=== PATIENT | female | born 1980 | race Caucasian/White ===

== ENCOUNTER 2019-09-29 19:14 | Emergency (ER) | payer OTHER, SELFPAY ==
[2019-09-29 20:20] VITALS: BP 151/101; PULSE 111; RESP 18; TEMP 37.6; O2SAT 99
--- NOTE | 2019-09-29 21:18 | ED.SKABFB ---
HPI - Skin/Abscess/Foreign Bdy General Chief complaint: Skin/Abscess/Foreign Body Stated complaint: RASH Time Seen by Provider: 09/29/19 21:18 Source: patient and RN notes reviewed Mode of arrival: other Limitations: no limitations History of Present Illness HPI narrative: Pt is a 39 y/o female who presents to the ED with c/o a pruritic rash with an unknown onset. Pt states that she has the rash for awhile. Pt notes that she recently came back from [place]. Pt states that she has been fighting a cold for the past two weeks with cough and rhinorrhea sx. Pt states the rash is on her extremities, abdomen, back, and buttocks. She denies her family having any rashes. Pt denies a fever. MD complaint: rash Onset (ago): unknown Location: generalized Quality: pruritic Relieving factors: none Associated symptoms: cough and other (rhinorrhea) Related Data Allergies Allergy/AdvReac Type Severity Reaction Status Date / Time No Known Allergies Allergy Verified 09/29/19 20:25 Review of Systems Review of Systems: All systems reviewed & are unremarkable except as noted in HPI and below Constitutional: Constitutional: Denies fever(s) ENT: Reports other (rhinorrhea) Respiratory: Respiratory: Reports cough Integumentary/Breasts: Skin/Breast: Reports pruritus and Reports rash (on her extremities, abdomen, back, and buttocks) PMFSH Past Medical History Medical History (Updated 09/30/19 @ 00:00 by Kip Morocho) HTN (hypertension) Migraines Surgical History Surgical History (Updated 09/29/19 @ 21:29 by Fauzia Najera) No history of previous surgery Social History Social History (Updated 09/29/19 @ 21:29 by Fauzia Najera) Smoking status: Former smoker Tobacco type: cigarettes Gender identity (if verbalized by the patient): Female Exam Const: General: cooperative, no acute distress and alert Nutritional Appearance: well nourished Orientation/consciousness: patient oriented x3 Limitations: no limitations HENMT: Head: other (wearing a mask) Resp: Effort & Inspection: normal respiratory effort GI: GI Palp: Yes Soft to palpation and No Tenderness to palpation present (GI) Skin: General skin exam: normal color Rashes: rashes noted diffuse other (small palpable rash scattered on extremities with excoriation, but with no obvious burrows) Neuro: General: patient oriented x3 Cognition (Neuro): normal cognition Speech: normal speech Extrem: General: normal to inspection, full ROM and no clubbing, cyanosis or edema Psych: Mental Status: mental status grossly normal Affect: normal affect Attitude: cooperative Course Course Emergency Course: Patient presents with approximately 1 to 1-1/2-month history of diffuse intensely pruritic rash. Patient with scattered papular rash without obvious burrows noted. Patient with significant excoriations. Suspect potential for scabies. Will treat. Advised importance of primary care follow-up for further evaluation if not improving. Vital Signs Vital signs: Vital Signs Temperature 99.6 F 09/29/19 20:20 Pulse Rate 111 H 09/29/19 20:20 Respiratory Rate 18 09/29/19 20:20 Blood Pressure 151/101 H 09/29/19 20:20 Pulse Oximetry 99 09/29/19 20:20 Temperature 99.6 F 09/29/19 20:20 Pulse Rate 111 H 09/29/19 20:20 Respiratory Rate 18 09/29/19 20:20 Blood Pressure 151/101 H 09/29/19 20:20 Pulse Oximetry 99 09/29/19 20:20 Critical Care Time Critical Care Time Critical Care Time: No Discharge Plan Discharge Clinical Impression: Rash and nonspecific skin eruption, Scabies Patient Disposition: Home, Self-Care Condition: Stable Instructions: Scabies (ED), Acute Rash (ED) Additional Instructions: Use treatment for possible scabies as prescribed. If this does not help your symptoms, follow-up with primary care provider for further evaluation. If things are not improving, you may need to see a property claim rep for further evalu
== END 2019-09-29 21:45 | disposition home or self-care (01) ==
PROVIDERS: Emergency Provider Emergency Medicine; PCP Family Medicine
DX: B86 Scabies (principal); I10 Essential (primary) hypertension; Z87.891 Personal history of nicotine dependence
CPT/HCPCS: 99283

== ENCOUNTER 2019-10-01 21:59 | Emergency (ER) | payer OTHER, SELFPAY ==
--- NOTE | ~2019-10-01 | XR_ITS ---
EXAMINATION: XR chest 2V DATE: 10/01/2019 22:48 INDICATION: Cough and congestion and fever. TECHNIQUE: Frontal and lateral views of the chest were obtained. COMPARISON: Chest 2 views 11/17/2018 FINDINGS: There is mild scarring at the lung apices. No pleural effusion or pneumothorax. The heart s ize is normal. Surgical clips in the right upper quadrant are likely from cholecystectomy. IMPRESSION: 1. Mild scarring at the lung apices. Reviewed, dictated and finalized at location A. R GLUING OPERATOR
[2019-10-01 22:02] VITALS: BP 146/89; PULSE 114; RESP 20; TEMP 39.1; O2SAT 100
[2019-10-01 22:27] VITALS: RESP 20
--- NOTE | 2019-10-01 22:52 | ED.URI ---
HPI - URI/Sore Throat General Chief Complaint: Fever Stated Complaint: vomiting, cough, cold Time Seen by Provider: 10/01/19 22:38 Source: patient and RN notes reviewed Mode of arrival: ambulatory Limitations: no limitations History of Present Illness HPI Narrative: Pt is a 39 y/o female who presents to the ED with c/o flu-like symptoms starting roughly 2 weeks ago. She notes that she has felt sick for the past 2 weeks. Pt reports a cough as well as a fever starting earlier today. She states that she took Tylenol for her symptoms around 14:00 this afternoon. Pt notes that she recently returned home from [place] where she was visiting her boyfriend. MD elicited complaint: fever and cough Pertinent past history: asthma Onset (ago): week(s) (2) Context: recent travel Associated symptoms: denies other symptoms Treatments prior to arrival: acetaminophen Related Data Allergies Allergy/AdvReac Type Severity Reaction Status Date / Time No Known Allergies Allergy Verified 09/29/19 20:25 Review of Systems Review of Systems: All systems reviewed & are unremarkable except as noted in HPI and below Constitutional: Constitutional: Reports fever(s) Respiratory: Respiratory: Reports cough PMFSH Past Medical History Medical History Asthma Gallstones HTN (hypertension) Kidney stones Migraines Toe fracture, right Surgical History Surgical History History of ureter stent Hx of cholecystectomy Social History Social History Smoking status: Former smoker Tobacco type: cigarettes Gender identity (if verbalized by the patient): Female Exam Narrative: Exam Narrative: APPEARANCE: No acute distress, nontoxic, resting in bed EYES: EOMI HEENT: Normocephalic, atraumatic, TMs clear bilaterally, bilateral turbinates boggy with clear rhinorrhea, erythema the posterior pharynx and tonsils with no exudate, uvula midline RESPIRATORY: No respiratory distress Clear to auscultation bilaterally with no rhonchi wheezing or rales. CARDIOVASCULAR: Regular rate and rhythm without murmurs rubs or gallops. ABDOMINAL: Soft, nontender, nondistended, no rebound or guarding MUSCULOSKELETAl: Moves all extremities. No clubbing, cyanosis or edema. NEURO: Awake and alert. Following commands, speech normal, no focal deficits SKIN:: Warm, dry. No rashes lesions or abrasions PSYCHIATRIC: Normal affect/mood, Course Course Emergency Course: Discussed with patient results of workup and diagnosis. Discussed need for follow-up with primary care, proper use of medication, and reasons to return to the emergency department. Patient understands and agrees to current treatment plan Vital Signs Vital signs: Vital Signs Temperature 102.4 F H 10/01/19 22:02 Pulse Rate 114 H 10/01/19 22:02 Respiratory Rate 10/01/19 22:02 Blood Pressure 146/89 H 10/01/19 22:02 Pulse Oximetry 100 10/01/19 22:02 Temperature 102.4 F H 10/01/19 22:02 Pulse Rate 114 H 10/01/19 22:02 Respiratory Rate 10/01/19 22:27 Blood Pressure 146/89 H 10/01/19 22:02 Pulse Oximetry 100 10/01/19 22:02 MDM - URI/Sore Throat Lab Data Labs: Influenza A Screen Positive Reference Range: Negative Influenza B Screen Negative Reference Range: Negative Imaging Data Attestation: I personally reviewed and interpreted this imaging study as follows: My impression: Chest X-Ray IMPRESSION: No acute cardiopulmonary process. Discharge Plan Discharge Clinical Impression: Influenza A Patient Disposition: Home, Self-Care Condition: Stable Instructions: Antibiotic Form, Influenza (ED) Additional Instructions: Return for increasing shortness of breath vomiting or any other symptoms of concern Prescriptions: New benzonatate [Tessalon Perles] 100 mg capsule 100 mg PO
[2019-10-01] MEDS: ACETAMINOPHEN 500 MG TABLET 1000 MG PO (23:23)
[2019-10-01 23:53] VITALS: TEMP 37.8
[2019-10-02 00:20] VITALS: BP 141/91; PULSE 116; RESP 14; TEMP 37.8; O2SAT 96
== END 2019-10-02 00:20 | disposition home or self-care (01) ==
PROVIDERS: Emergency Provider Emergency Medicine; PCP Family Medicine
DX: J10.1 Influenza due to other identified influenza virus with other respiratory manifestations (principal); J45.909 Unspecified asthma, uncomplicated; I10 Essential (primary) hypertension; Z87.442 Personal history of urinary calculi; Z87.891 Personal history of nicotine dependence
CPT/HCPCS: 71046; 87804; 99283; A9270

== ENCOUNTER 2020-06-24 18:20 | Emergency (ER) | payer OTHER, SELFPAY ==
[2020-06-24] VITALS (18 sets, daily range): BP systolic 124–140; BP diastolic 80–107; PULSE 93–116; RESP 14–23; TEMP 36.3; O2SAT 99–100
--- NOTE | ~2020-06-24 | CT_ITS ---
EXAMINATION: CTA chest PE protocol DATE: 06/24/2020 20:33 INDICATION: Shortness of breath TECHNIQUE: Computed tomography (CT) pulmonary angiogram of the chest was performed with 100 mL Omnipa que-350 intravenous contrast. Additional 3D reconstructions utilizing coronal maximum intensity proje ction (MIP) were performed. Automated exposure control and iterative reconstruction technique were em ployed. The dose-length product was 604.24 mGy-cm. COMPARISON: None FINDINGS: Excellent contrast opacification of the pulmonary arteries. There is mild streak artifact from dense contrast in the superior vena cava and right atrium. Minimal scattered respiratory motion artifact wh ich does not significantly limit evaluation. No pulmonary embolism. No pneumonia, pulmonary edema or pleural effusion. Heart size is normal. No pericardial effusion. Thoracic aorta is normal in caliber with no dissection. No pathologically enlarged abdominal or pelvic lymphadenopathy. Visualized upper abdomen and bones are unremarkable. IMPRESSION: 1. No pulmonary embolism or other acute cardiopulmonary disease. Reviewed, dictated and finalized at [facility]. MACHINE TENDER
--- NOTE | ~2020-06-24 | XR_ITS ---
EXAMINATION: XR chest 1V portable DATE: 06/24/2020 19:42 INDICATION: Asthma presenting with shortness of breath and cough TECHNIQUE: frontal view of the chest was obtained. COMPARISON: Chest radiograph dated 10/01/2019 FINDINGS: The lungs remain clear with no focal airspace opacities, pulmonary edema, pleural effusion or pneumot horax. The cardiomediastinal silhouette is normal. IMPRESSION: 1. No acute cardiopulmonary disease. Reviewed, dictated and finalized at location . R RUNNER
--- NOTE | 2020-06-24 19:18 | ECG_ITS ---
Measurements Intervals [place] Rate: 97 P: 31 MO: 126 QRS: 25 QRSD: 86 T: 41 QT: 344 QTc: 438 Interpretive Statements SINUS RHYTHM BORDERLINE T WAVE ABNORMALITY- ANTERIOR LEADS BASELINE ARTIFACT- III, AVF, V1 BORDERLINE ECG Electronically Signed On 06-25-2020 7:22:05 ARCHITECTURAL COATING FINISHER by Roman Iverson D.O.
--- NOTE | 2020-06-24 19:19 | ED.SOB ---
HPI - SOB/Dyspnea General Chief Complaint: Shortness of Breath/Dyspnea Stated Complaint: Cough, SOB, I had asthma before Time Seen by Provider: 06/24/20 19:08 Source: patient Mode of arrival: ambulatory Limitations: no limitations History of Present Illness HPI Narrative: This is a 39 year old female that presents to the ER for shortness of breath which started today. Associated with cough and congestion. Denies fever or chest pain. Related Data Home Medications Medication Instructions Recorded Confirmed levonorgestrel-ethinyl estrad 06/24/20 lisinopril 06/24/20 meloxicam 06/24/20 Allergies Allergy/AdvReac Type Severity Reaction Status Date / Time No Known Allergies Allergy Verified 06/24/20 18:31 Review of Systems Review of Systems: Narrative: CONSTITUTIONAL: Denies fever ENT: Reports rhinorrhea, congestion CARDIOVASCULAR: Denies chest pain, or edema. RESPIRATORY: Reports cough and dyspnea. All systems reviewed & are unremarkable except as noted in HPI and below PMFSH Past Medical History Medical History (Updated 06/24/20 @ 21:36 by Shari Cohn PA-C) Asthma Gallstones HTN (hypertension) Kidney stones Migraines Toe fracture, right Surgical History Surgical History History of ureter stent Hx of cholecystectomy Social History Social History Smoking status: Former smoker Tobacco type: cigarettes Gender identity (if verbalized by the patient): Female Exam Narrative: Exam Narrative: GENERAL: Well-appearing, well-nourished, and in no acute distress. HEAD: Normocephalic, atraumatic. EYES: EOMI. ENT: Nares clear, no rhinorrhea or epistaxis. Mucous membranes moist. Oropharynx without tonsillar hypertrophy exudate or other lesions. Bilateral TMs pearly puente non-bulging NECK: Supple. No adenopathy or masses. CHEST: Clear to auscultation. No respiratory distress. No wheezes rales or rhonchi HEART: Regular rate and rhythm. No murmur heard. Normal peripheral pulses. EXTREMITIES: Normal range of motion. No edema. SKIN: Warm, dry, no rash. NEURO: No focal deficits. Alert and oriented x3. PSYCH: Normal mood and affect Course Vital Signs Vital signs: Vital Signs Temperature 97.4 F L 06/24/20 18:24 Pulse Rate 116 H 06/24/20 18:24 Respiratory Rate 18 06/24/20 18:24 Blood Pressure 140/80 06/24/20 18:24 Pulse Oximetry 100 06/24/20 18:24 Temperature 97.4 F L 06/24/20 18:24 Pulse Rate 96 06/24/20 21:30 Respiratory Rate 15 06/24/20 21:30 Blood Pressure 124/91 H 06/24/20 21:01 Pulse Oximetry 100 06/24/20 21:30 MDM - SOB/Dyspnea MDM Narrative Medical decision making narrative: Patient presents to the emergency department for cold symptoms today. He is afebrile and nontoxic-appearing. Mildly tachycardic upon arrival, this normalized with IV fluids. CBC with mild leukocytosis to 13.1. Metabolic panel without concerning findings. BNP is not elevated. EKG is without concerning changes. Patient denies any chest pain. Bedside test is negative. D-dimer was elevated, so CTA of the chest was obtained which was without evidence of pulmonary embolism. Patient was updated on case findings. Influenza screen negative. SARS-CoV-2 was sent. Patient is stable and felt appropriate for further outpatient evaluation. She was given warnings to return to the ER Lab Data Attestation: I reviewed the patient's lab results. Result diagrams: 06/24/20 19:25 06/24/20 19:25 Labs: Lab Results 06/24/20 06/24/20 06/24/20 Range/Units 19:25 19:25 19:25 WBC 13.1 H (4.5-10.0) K/mm3 RBC 4.84 (4.2-5.4) M/mm3 Hgb 13.5 (12.0-15.0) g/dL Hct 41.5 (37.0-47.0) % MCV 85.7 (80-100) fl MCH 27.9 (26-34) pg MCHC 32.5 (32-36) g/dl RDW 13.1 (11.5-14.5) % Plt Count 408 H (150-375) k/mm3 MPV 10.0 (7.4-10.4) f
[2020-06-24 19:32] LABS: Basophils Percent Auto 0.3 % (0.2-1.2); Eosinophils Absolute Auto 0.6 K/mm3 (0-0.3); Eosinophils Percent Auto 4.7 % (0-4.4); Hematocrit 41.5 % (37.0-47.0); Hemoglobin 13.5 g/dL (12.0-15.0); Immature Granulocyte Absolute 0.05 K/mm3 (0.00-0.031); Immature Granulocyte Percent A 0.4 % (0-0.5); Lymphocytes Percent Auto 30.5 % (18.3-44.2); Mean Corpuscular HGB Conc 32.5 g/dl (32-36); Mean Corpuscular Hemoglobin 27.9 pg (26-34); Mean Corpuscular Volume 85.7 fl (80-100); Monocytes Absolute Auto 0.6 K/mm3 (0.1-0.6); Monocytes Percent Auto 4.9 % (2.6-8.5); Neutrophils Absolute Auto 7.8 K/mm3 (1.3-6.7); Neutrophils Percent Auto 59.2 % (45.5-73.1); Platelet Count Result 408 k/mm3 (150-375); Red Blood Count 4.84 M/mm3 (4.2-5.4); Red Cell Distribution Width 13.1 % (11.5-14.5); White Blood Count 13.1 K/mm3 (4.5-10.0)
[2020-06-24] MEDS: SODIUM CHLORIDE 0.9% IV 1,000 ML 999 ML IV CONT (19:40)
[2020-06-24 19:41] LABS: INR 0.9; Prothrombin Time 12.5 Seconds (11.1-14.7)
[2020-06-24 19:42] LABS: Partial Thromboplastin Time 27.4 SECONDS (22.3-36.8)
[2020-06-24 19:43] LABS: Anion Gap 10 mmol/L (8-16); Blood Urea Nitrogen 11 mg/dL (7-17); Calcium 9.1 mg/dL (8.4-10.2); Carbon Dioxide 25 mmol/L (22-30); Chloride 104 mmol/L (98-107); Estimated CRCL calculation 101 ml/min; Estimated Glomerular Filt Rate > 60; Glucose 164 mg/dL (65-105); Potassium 3.9 mmol/L (3.4-5.0); Sodium 139 mmol/L (137-145)
[2020-06-24 19:44] LABS: D Dimer 0.53 ug/mL (<0.48)
[2020-06-24 19:52] LABS: NT Pro B Type Natriuretic Pept 46 PG/ML (5-100)
--- NOTE | 2020-06-24 20:13 | PC.NURSE ---
patient has CT ordered. test requested by CT. patient ambulated to restroom and back. urine collected.
--- NOTE | 2020-06-24 21:05 | PC.NURSE ---
all tests resulted. waiting for further orders from provider vs disposition.
--- NOTE | 2020-06-24 21:35 | PC.NURSE ---
flu and covid swabs done.
[2020-06-25 16:41] LABS: SARS-CoV-2 RNA PCR Negative
== END 2020-06-24 22:20 | disposition home or self-care (01) ==
PROVIDERS: Physician Assistant; Emergency Provider Emergency Medicine
DX: B34.9 Viral infection, unspecified (principal); Z20.828 Contact with and (suspected) exposure to other viral communicable diseases; I10 Essential (primary) hypertension; Z87.442 Personal history of urinary calculi; Z87.891 Personal history of nicotine dependence; J45.909 Unspecified asthma, uncomplicated; R94.31 Abnormal electrocardiogram [ECG] [EKG]
CPT/HCPCS: 36415; 71045; 71275; 80048; 81025; 83880; 85025; 85380; 85610; 85730; 87635; 87804; 93005; 96360; 99284; C9803; J7030; Q9967; U0003

== ENCOUNTER 2020-07-07 10:27 | Emergency (ER) | payer OTHER, SELFPAY ==
--- NOTE | ~2020-07-07 | XR_ITS ---
EXAMINATION: XR chest 1V portable 07/07/2020 11:01 INDICATION: Chest pain PROCEDURE: AP portable chest COMPARISON: Comparison to multiple prior studies sequentially, with oldest reviewed study dated 08/14. FINDINGS: The lungs are clear. The cardiomediastinal silhouette is within normal limits. There are no pleural effusions. There is no pneumothorax suspected. IMPRESSION: 1: NO ACUTE CARDIOPULMONARY DISEASE. Reviewed, dictated and finalized at location A. ER BLOCK MASON
--- NOTE | ~2020-07-07 | CT_ITS ---
EXAMINATION: CTA chest PE protocol DATE: 07/07/2020 12:43 UNDERTAKER HELPER INDICATION: Asthma. Shortness of breath. Chest pain. TECHNIQUE: Computed tomographic angiography (CTA) of the chest was performed with 100 mL Omnipaque-35 0 intravenous contrast. The dose-length product was 602.49 mGy-cm. Maximum intensity projection 3D-re constructions of the aorta and other arteries were constructed by the technologist on a separate work station. Automated exposure control and iterative reconstruction technique were employed. COMPARISON: CT dated 06/24/2020. FINDINGS: Study is technically adequate without evidence for pulmonary embolism. Heart size normal. N o significant pleural or pericardial effusion. There is a hypodense lesion of the right hepatic lobe, most likely benign cyst or hemangioma. No thoracic lymphadenopathy. Thyroid gland is unremarkable. N o focal airspace consolidation. No endobronchial lesion. No pneumothorax. No acute osseous abnormalit y. IMPRESSION: 1. No acute cardiopulmonary disease. No evidence for pulmonary embolism. Reviewed, dictated and finalized at location A. RTAKER HELPER
[2020-07-07 10:29] VITALS: BP 142/99; PULSE 115; RESP 22; TEMP 36.2; O2SAT 100
[2020-07-07 10:39] VITALS: BP 136/98; PULSE 104; RESP 20; O2SAT 97
--- NOTE | 2020-07-07 10:40 | ECG_ITS ---
Measurements Intervals [place] Rate: 102 P: 13 ME: 124 QRS: 14 QRSD: 83 T: 6 QT: 338 QTc: 440 Interpretive Statements SINUS TACHYCARDIA BORDERLINE T WAVE ABNORMALITY- INFERIOR LEADS BORDERLINE ECG Electronically Signed On 07-07-2020 10:44:23 PIPE CONNECTOR by Roman Iverson D.O.
[2020-07-07 11:12] VITALS: BP 130/95; PULSE 95; RESP 20; O2SAT 97
[2020-07-07] MEDS: LORazepam INJ (*CRX) 2 MG/ML VIAL 1 MG IV PUSH (11:13)
[2020-07-07] MEDS: SODIUM CHLORIDE 0.9% IV 1,000 ML 999 ML IV CONT (11:15)
--- NOTE | 2020-07-07 11:24 | ED.GENADULT ---
HPI - General Adult General Chief complaint: Asthma <Quincy Chiu PA-C - Last Filed: 07/07/20 13:23> Stated complaint: sob <Quincy Chiu PA-C - Last Filed: 07/07/20 13:23> Time Seen by Provider: 07/07/20 10:42 <Quincy Chiu PA-C - Last Filed: 07/07/20 13:23> Source: patient <Quincy Chiu PA-C - Last Filed: 07/07/20 13:23> Mode of arrival: ambulatory <Quincy Chiu PA-C - Last Filed: 07/07/20 13:23> Limitations: no limitations <Quincy Chiu PA-C - Last Filed: 07/07/20 13:23> History of Present Illness HPI narrative: Patient is a 39-year-old female who presents with sudden onset sharp stabbing midsternal chest pain that does not radiate is made worse with any movement patient notes she has had some stress of late but denies similar occurrence or history of heart disease patient presents in no distress does not appear uncomfortable denies radiation of pain or any. Sick contacts or URI symptoms <Quincy Chiu PA-C - Last Filed: 07/07/20 13:23> Related Data Home medications: Home Medications Medication Instructions Recorded Confirmed levonorgestrel-ethinyl estrad 06/24/20 lisinopril 06/24/20 meloxicam 06/24/20 <Quincy Chiu PA-C - Last Filed: 07/07/20 13:23> Allergies/adverse reactions: Allergies Allergy/AdvReac Type Severity Reaction Status Date / Time No Known Allergies Allergy Verified 07/07/20 10:32 <Quincy Chiu PA-C - Last Filed: 07/07/20 13:23> Review of Systems Review of Systems: All systems reviewed & are unremarkable except as noted in HPI and below <Quincy Chiu PA-C - Last Filed: 07/07/20 13:23> [facility] Past Medical History Medical History: Medical History (Updated 07/07/20 @ 13:23 by Quincy Chiu PA-C) Asthma Gallstones HTN (hypertension) Kidney stones Migraines Toe fracture, right <Quincy Chiu PA-C - Last Filed: 07/07/20 13:23> Surgical History Surgical History: Surgical History History of ureter stent Hx of cholecystectomy <Quincy Chiu PA-C - Last Filed: 07/07/20 13:23> Social History Social History: Social History Smoking status: Former smoker Tobacco type: cigarettes Gender identity (if verbalized by the patient): Female <Quincy Chiu PA-C - Last Filed: 07/07/20 13:23> Exam Narrative: Exam Narrative: GENERAL: Well-appearing, well-nourished, and in no acute distress. HEAD: Normocephalic, atraumatic. EYES: PERRLA and EOMI. ENT: Nares clear, no rhinorrhea or epistaxis. Mucous membranes moist. CHEST: Clear to auscultation. No respiratory distress. No wheezes rales or rhonchi HEART: Regular rate and rhythm. No murmur heard. Normal peripheral pulses. ABDOMEN: Soft, nontender, nondistended EXTREMITIES: Normal range of motion. No edema. SKIN: Warm, dry, no rash. NEURO: No focal deficits. Alert and oriented x3. PSYCH: Normal mood and affect. <Quincy Chiu PA-C - Last Filed: 07/07/20 13:23> Course Course Emergency Course: Patient is a 39-year-old who presented with chest discomfort was evaluated given fluids Ativan Tylenol with resolution of symptoms feels much better at this time. Patient will be discharged home with follow-up with primary care. <Quincy Chiu PA-C - Last Filed: 07/07/20 13:23> Vital Signs Vital signs: Vital Signs Temperature 97.2 F L 07/07/20 10:29 Pulse Rate 115 H 07/07/20 10:29 Respiratory Rate 22 H 07/07/20 10:29 Blood Pressure 142/99 H 07/07/20 10:29 Pulse Oximetry 100 07/07/20 10:29 Temperature 97.2 F L 07/07/20 10:29 Pulse Rate 96 07/07/20 13:38 Respiratory Rate 20 07/07/20 13:38 Blood Pressure 130/90 07/07/20 13:38 Pulse Oximetry 100 07/07/20 13:38 <Quincy Chiu PA-C - Last Filed: 07/07/20 13:23> Vital Signs Temp
[2020-07-07 11:29] LABS: Basophils Percent Auto 0.4 % (0.2-1.2); Eosinophils Absolute Auto 0.6 K/mm3 (0-0.3); Eosinophils Percent Auto 5.1 % (0-4.4); Hematocrit 38.4 % (37.0-47.0); Hemoglobin 12.4 g/dL (12.0-15.0); Immature Granulocyte Absolute 0.05 K/mm3 (0.00-0.031); Immature Granulocyte Percent A 0.5 % (0-0.5); Lymphocytes Absolute Auto 2.76 K/mm3 (0.9-3.2); Lymphocytes Percent Auto 25.7 % (18.3-44.2); Mean Corpuscular HGB Conc 32.3 g/dl (32-36); Mean Corpuscular Hemoglobin 27.7 pg (26-34); Mean Corpuscular Volume 85.7 fl (80-100); Mean Platelet Volume 10.3 fl (7.4-10.4); Monocytes Absolute Auto 0.5 K/mm3 (0.1-0.6); Monocytes Percent Auto 4.6 % (2.6-8.5); Neutrophils Absolute Auto 6.8 K/mm3 (1.3-6.7); Neutrophils Percent Auto 63.7 % (45.5-73.1); Platelet Count Result 347 k/mm3 (150-375); Red Blood Count 4.48 M/mm3 (4.2-5.4); White Blood Count 10.7 K/mm3 (4.5-10.0)
[2020-07-07 11:34] LABS: Add Urine Microscopic? YES; Appearance Urine Clear (Clear); Bacteria Urine Trace /hpf; Bilirubin Urine Negative (Negative); Blood Urine 1+ (Negative); Color Urine Yellow (Yellow); Glucose Urine UA Negative (Negative); Ketones Urine Trace mg/dL (Negative); Leukocyte Esterase Ur 1+ LEU/UL (Negative); Mucus Urine Moderate /lpf; Nitrate Urine Negative (Negative); Protein Urine 1+ mg/dL (Negative); Specific Grav Ur 1.028 (1.001-1.035); Squamous Epithelial Cell Urine Many /hpf (Few); Urobilinogen Urine Negative mg/dL (<2.0)
[2020-07-07 11:39] LABS: Alanine Aminotransferase 20 U/L (4-35); Albumin Level 3.6 g/dL (3.5-5.1); Alkaline Phosphatase 78 U/L (38-126); Anion Gap 8 mmol/L (8-16); Aspartate Amino Transferase 35 U/L (14-36); Bilirubin,Total 0.2 mg/dL (0.2-1.3); Blood Urea Nitrogen 11 mg/dL (7-17); Calcium 8.9 mg/dL (8.4-10.2); Carbon Dioxide 23 mmol/L (22-30); Chloride 105 mmol/L (98-107); Estimated CRCL calculation 117 ml/min; Estimated Glomerular Filt Rate > 60; Glucose 135 mg/dL (65-105); Potassium 3.9 mmol/L (3.4-5.0); Sodium 136 mmol/L (137-145)
[2020-07-07 11:41] LABS: D Dimer 0.59 ug/mL (<0.48)
[2020-07-07 11:51] LABS: NT Pro B Type Natriuretic Pept 70 PG/ML (5-100); Troponin I < 0.012 ng/mL (0.000-0.034)
[2020-07-07 12:20] VITALS: BP 130/96; PULSE 86; RESP 20; O2SAT 100
[2020-07-07 13:38] VITALS: BP 130/90; PULSE 96; RESP 20; O2SAT 100
== END 2020-07-07 13:40 | disposition home or self-care (01) ==
PROVIDERS: Emergency Medicine Emergency Medical Services; Emergency Provider General Practice; PCP Nurse Practitioner Family
DX: R07.2 Precordial pain (principal); J45.909 Unspecified asthma, uncomplicated; I10 Essential (primary) hypertension; Z87.442 Personal history of urinary calculi; Z87.891 Personal history of nicotine dependence; R00.0 Tachycardia, unspecified; R94.31 Abnormal electrocardiogram [ECG] [EKG]
CPT/HCPCS: 36415; 71045; 71275; 80053; 81001; 81025; 83880; 84484; 85025; 85380; 93005; 96361; 96365; 96375; 99284; J0131; J2060; J7030; Q9967

== ENCOUNTER 2020-08-05 17:17 | Emergency (ER) | payer OTHER, SELFPAY ==
--- NOTE | ~2020-08-05 | XR_ITS ---
EXAMINATION: XR lumbar spine 2-3V DATE: 08/05/2020 18:21 INDICATION: Low back pain TECHNIQUE: Anteroposterior and lateral views of the lumbar spine, and cone-down lateral view of the l umbosacral junction were obtained. COMPARISON: 04/03/2019 FINDINGS: There is no fracture, dislocation, or subluxation. The vertebral body heights, alignment, a nd intervertebral disc spaces are normal. The paravertebral soft tissues are unremarkable. Surgical c lips in the right upper quadrant are likely from prior cholecystectomy. IMPRESSION: 1. No acute osseous abnormality. Reviewed, dictated and finalized at location A. [employer]
--- NOTE | ~2020-08-05 | XR_ITS ---
EXAMINATION: XR knee RT 3V DATE: 08/05/2020 18:22 INDICATION: Right knee pain TECHNIQUE: Three views of the right knee were obtained. COMPARISON: 04/09/2012 FINDINGS: Alignment is normal. No fracture or osteochondral lesion. There is mild tricompartmental os teoarthritis characterized by tiny marginal osteophytes. No joint effusion/synovitis. There is mild soft tissue swelling of the knee. IMPRESSION: 1. No acute osseous abnormality. Reviewed, dictated and finalized at location A. [employer]
[2020-08-05 17:28] VITALS: BP 148/85; PULSE 110; RESP 18; TEMP 36.6; O2SAT 100
--- NOTE | 2020-08-05 17:44 | ED.FALL ---
HPI - Fall General Chief Complaint: Fall Stated Complaint: lower back pain and knee pain Time Seen by Provider: 08/05/20 17:39 Source: patient Mode of arrival: ambulatory Limitations: no limitations History of Present Illness HPI Narrative: Patient is a 39-year-old female who presents complaining of right knee pain and lower back pain after a fall yesterday. Patient reports slip and fall down 1 step yesterday, injuring right knee and causing lower back pain. Patient reports a history of lower back pain but reports pain is increased since fall. She denies other injuries. She denies LOC. complaint: fall Related Data Home Medications Medication Instructions Recorded Confirmed levonorgestrel-ethinyl estrad 06/24/20 lisinopril 06/24/20 albuterol sulfate INHALATION 08/05/20 escitalopram oxalate mg 08/05/20 naproxen 08/05/20 Allergies Allergy/AdvReac Type Severity Reaction Status Date / Time No Known Allergies Allergy Verified 08/05/20 17:31 Review of Systems Review of Systems: Narrative: CONSTITUTIONAL: Denies fever, chills, or sweats. EYES: Denies visual changes, redness, or discharge. ENT: Denies rhinorrhea, congestion, sore throat, or otalgia. CARDIOVASCULAR: Denies chest pain, palpitations, or edema. RESPIRATORY: Denies cough or dyspnea. GASTROINTESTINAL: Denies abdominal pain, nausea, vomiting, or diarrhea. GENITOURINARY: Denies dysuria or hematuria. SKIN: Denies rash or itching. MUSCULOSKELETAL: Reports right knee pain and lower back pain NEUROLOGIC: Denies headache, numbness, dizziness, or weakness. PSYCHIATRIC: Denies anxiety or depression. [facility] Past Medical History Medical History (Updated 08/05/20 @ 18:47 by TRACEY Lucio) Asthma Gallstones HTN (hypertension) Kidney stones Migraines Toe fracture, right Surgical History Surgical History History of ureter stent Hx of cholecystectomy Family History Family History (Updated 08/05/20 @ 17:47 by TRACEY Lucio) Other No significant family history Social History Social History (Updated 08/05/20 @ 17:47 by TRACEY Lucio) Smoking status: Former smoker Tobacco type: cigarettes Alcohol intake: never Substance use: never Gender identity (if verbalized by the patient): Female Exam Narrative: Exam Narrative: GENERAL: Well-appearing, well-nourished, and in no acute distress. HEAD: Normocephalic, atraumatic. EYES: No redness or drainage. ENT: Mucous membranes pink and moist. . CHEST: No respiratory distress. MUSCULOSKELETAL: Lower back pain with palpation EXTREMITIES: Mild swellin to right knee, tenderness with palpation SKIN: Warm, dry, no rash. NEURO: No focal deficits. Alert and oriented x3. Gait steady. PSYCH: Normal affect. No signs of depression or anxiety. Course Vital Signs Vital signs: Vital Signs Temperature 36.6 C 08/05/20 17:28 Pulse Rate 110 H 08/05/20 17:28 Respiratory Rate 18 08/05/20 17:28 Blood Pressure 148/85 H 08/05/20 17:28 Pulse Oximetry 100 08/05/20 17:28 Temperature 36.6 C 08/05/20 17:28 Pulse Rate 110 H 08/05/20 17:28 Respiratory Rate 18 08/05/20 17:28 Blood Pressure 148/85 H 08/05/20 17:28 Pulse Oximetry 100 08/05/20 17:28 Reviewed-patient is informed that they may have pre-hypertension or hypertension based on a blood pressure reading. I recommend the patient call the primary care provider listed on their discharge instructions or a physician of their choice this week to arrange follow-up for further evaluation of possible pre-hypertension or hypertension. MDM - Fall MDM Narrative Medical decision making narrative: Patient's x-ray shows no fracture, dislocation or abnormality. Discussed with patient most likely musculoskeletal pain. Discussed rest, ice, elevation and NSAID use. Patient is stable for discharge to home with outpatient follow-up as needed. Differential Diag
[2020-08-05 18:55] VITALS: BP 138/88; PULSE 99; RESP 20; O2SAT 100
== END 2020-08-05 18:57 | disposition home or self-care (01) ==
PROVIDERS: Emergency Provider Nurse Practitioner; PCP Nurse Practitioner Family
DX: M25.561 Pain in right knee (principal); S39.92XA Unspecified injury of lower back, initial encounter; J45.909 Unspecified asthma, uncomplicated; I10 Essential (primary) hypertension; Z87.442 Personal history of urinary calculi; Z87.891 Personal history of nicotine dependence; W10.9XXA Fall (on) (from) unspecified stairs and steps, initial encounter
CPT/HCPCS: 72100; 73562; 99284

== ENCOUNTER 2020-09-20 12:31 | Outpatient (CLI) | payer OTHER, SELFPAY ==
--- NOTE | ~2020-09-20 | MR_ITS ---
EXAMINATION: MR knee RT wo con DATE: 09/20/2020 13:30 INDICATION: Chronic right knee pain TECHNIQUE: Magnetic resonance imaging (MRI) of the right knee was performed without intravenous contr ast. Sequences included coronal PD-weighted FSE, coronal PD-weighted FS FSE, sagittal T2-weighted FS E, sagittal PD-weighted FS FSE and axial PD weighted fat saturated FSE. COMPARISON: None. FINDINGS: Medial compartment: Medial meniscus is normal. Partial-thickness chondral fissure along the lateral side of the junction of the anterior to mid weightbearing medial femoral condyle. Articular cartilage is otherwise normal. Lateral compartment: Lateral meniscus is normal. Articular cartilage is normal. Patellofemoral compartment: Articular cartilage is normal. Ligaments and tendons: Anterior and posterior cruciate ligaments are normal. The medial collateral ligament and fibular jasmin ateral ligament complex are normal. The extensor mechanism is normal. The visualized medial and later al hamstring tendons as well as the iliotibial band are normal. Fluid: Physiologic amount of fluid in the joint space. No loose osteochondral bodies identified. Osseous/other: Normal marrow signal. No fracture or abnormal marrow replacing process. IMPRESSION: 1. Small partial-thickness chondral fissure along the lateral margin of the anterior to central weigh tbearing medial femoral condyle. Otherwise unremarkable right knee MRI. Reviewed, dictated and finalized at location A. STUDY STATISTICIAN IMPRESSION: 1. Small partial-thickness chondral fissure along the lateral margin of the ant erior to central weightbearing medial femoral condyle. Otherwise unremarkable r ight knee MRI.
== END 2020-09-20 12:32 | disposition home or self-care (01) ==
LOC: ANHIMG 12:34
PROVIDERS: PCP Nurse Practitioner Family; Visit Provider Nurse Practitioner Family
DX: M23.51 Chronic instability of knee, right knee (principal); M25.561 Pain in right knee; G89.29 Other chronic pain; S89.91XD Unspecified injury of right lower leg, subsequent encounter; X58.XXXD Exposure to other specified factors, subsequent encounter
CPT/HCPCS: 73721

== ENCOUNTER 2021-01-06 19:22 | Emergency (ER) | payer OTHER, SELFPAY ==
[2021-01-06] VITALS (12 sets, daily range): BP systolic 115–138; BP diastolic 79–90; PULSE 92–119; RESP 16–24; TEMP 36.9; O2SAT 99–100
[2021-01-06 19:36] LABS: Basophils Absolute Auto 0.1 K/mm3 (0.0-0.1); Basophils Percent Auto 0.4 % (0.2-1.2); Eosinophils Absolute Auto 0.3 K/mm3 (0-0.3); Eosinophils Percent Auto 2.5 % (0-4.4); Hematocrit 40.6 % (37.0-47.0); Hemoglobin 13.1 g/dL (12.0-15.0); Immature Granulocyte Absolute 0.07 K/mm3 (0.00-0.031); Immature Granulocyte Percent A 0.6 % (0-0.5); Lymphocytes Absolute Auto 3.85 K/mm3 (0.9-3.2); Lymphocytes Percent Auto 31.1 % (18.3-44.2); Mean Corpuscular HGB Conc 32.3 g/dl (32-36); Mean Corpuscular Hemoglobin 27.6 pg (26-34); Mean Corpuscular Volume 85.5 fl (80-100); Mean Platelet Volume 10.5 fl (7.4-10.4); Monocytes Absolute Auto 0.8 K/mm3 (0.1-0.6); Monocytes Percent Auto 6.7 % (2.6-8.5); Neutrophils Absolute Auto 7.3 K/mm3 (1.3-6.7); Neutrophils Percent Auto 58.7 % (45.5-73.1); Platelet Count Result 407 k/mm3 (150-375); Red Blood Count 4.75 M/mm3 (4.2-5.4); Red Cell Distribution Width 13.2 % (11.5-14.5); White Blood Count 12.4 K/mm3 (4.5-10.0)
[2021-01-06 19:50] LABS: Albumin Level 4.2 g/dL (3.5-5.1); Alkaline Phosphatase 120 U/L (38-126); Anion Gap 15 mmol/L (8-16); Aspartate Amino Transferase 37 U/L (14-36); Bilirubin,Total 0.3 mg/dL (0.2-1.3); Blood Urea Nitrogen 9 mg/dL (7-17); Calcium 9.4 mg/dL (8.4-10.2); Carbon Dioxide 21 mmol/L (22-30); Chloride 104 mmol/L (98-107); Estimated CRCL calculation 100 ml/min; Estimated Glomerular Filt Rate > 60; Glucose 269 mg/dL (65-105); Lipase 92 U/L (23-300); Potassium 3.9 mmol/L (3.4-5.0); Sodium 140 mmol/L (137-145)
[2021-01-06 19:50] LABS: Add Urine Microscopic? YES; Appearance Urine Cloudy (Clear); Bacteria Urine 2+ /hpf; Bilirubin Urine Negative (Negative); Blood Urine 2+ (Negative); Color Urine Yellow (Yellow); Glucose Urine UA 3+ mg/dL (Negative); Ketones Urine Trace mg/dL (Negative); Leukocyte Esterase Ur Negative LEU/UL (Negative); Mucus Urine Few /lpf; Nitrate Urine Negative (Negative); Protein Urine 1+ mg/dL (Negative); Specific Grav Ur 1.027 (1.001-1.035); Squamous Epithelial Cell Urine Many /hpf (Few); Urobilinogen Urine Negative mg/dL (<2.0)
--- NOTE | 2021-01-06 19:50 | ED.NAVMDI ---
HPI - Nausea/Vomiting/Diarrhea General Chief complaint: Nausea/Vomiting/Diarrhea Stated complaint: nausea, dizziness Time Seen by Provider: 01/06/21 19:45 Source: RN notes reviewed History of Present Illness HPI Narrative: Patient presents to emergency department from home for nausea vomiting diarrhea. Patient states that symptoms began this morning with diarrhea with several episodes of diarrhea states that the change began to develop nausea with epigastric abdominal pain states that she does have dizziness when she gets and walks is improved with laying down she denies any definitive vomiting she denies any fevers or chills chest pain shortness of breath or any other symptoms states she took Tylenol at home for the symptoms with minimal relief Related Data Home Medications Medication Instructions Recorded Confirmed levonorgestrel-ethinyl estrad 06/24/20 lisinopril 06/24/20 albuterol sulfate INHALATION 08/05/20 escitalopram oxalate mg 01/06/21 01/06/21 Allergies Allergy/AdvReac Type Severity Reaction Status Date / Time No Known Allergies Allergy Verified 01/06/21 19:50 Review of Systems Review of Systems: Narrative: Gen.: Denies fevers or chills Eyes: Denies eye pain or visual change ENT: Denies congestion Respiratory: Denies shortness of breath or cough CV: Denies chest pain or palpitations GI: See HPI Musculoskeletal: Denies back pain or muscle pain Neuro: Denies numbness, tingling, weakness or focal weakness Skin: Denies rash Except as documented, all other systems reviewed and negative [facility] Past Medical History Medical History (Updated 01/06/21 @ 22:37 by Jonathan Jones DO) Asthma Gallstones HTN (hypertension) Kidney stones Migraines Toe fracture, right Surgical History Surgical History History of ureter stent Hx of cholecystectomy Family History Family History (Updated 08/05/20 @ 17:47 by TRACEY Lucio) Other No significant family history Social History Social History Smoking status: Former smoker Tobacco type: cigarettes Alcohol intake: never Substance use: never Gender identity (if verbalized by the patient): Female Exam Narrative: Exam Narrative: APPEARANCE: No acute distress, nontoxic, resting in bed HEENT: Normocephalic, atraumatic, OMM RESPIRATORY: No respiratory distress, clear to auscultation bilaterally with no rhonchi wheezing or rales CARDIOVASCULAR: RRR s murmur ABDOMINAL: Soft nondistended tender palpation epigastric left upper quadrant no tenderness right upper quadrant and right lower quadrant left lower quadrant no rebound or guarding MUSCULOSKELETAl: Moves all extremities. No clubbing, cyanosis or edema. NEURO: Awake and alert. Following commands, speech normal, no focal deficits SKIN:: Warm, dry. Normal Color PSYCHIATRIC: Normal affect/mood Course Course Emergency Course: Patient eating and drinking in ED with no difficulty Patient states that they are feeling much better at this time. States abdominal pain has resolved. Repeat abdominal exam shows the patient's abdomen to be soft and nontender. Discussed with patient results of workup and diagnosis. Discussed need for follow-up with primary care physician, reasons to return to the emergency department in proper use of medication. Patient understands and agrees to current treatment plan Vital Signs Vital signs: Vital Signs Temperature 98.4 F 01/06/21 19:24 Pulse Rate 119 H 01/06/21 19:24 Respiratory Rate 18 01/06/21 19:24 Blood Pressure 136/86 01/06/21 19:24 Pulse Oximetry 100 01/06/21 19:24 Temperature 98.4 F 01/06/21 19:24 Pulse Rate 92 01/06/21 22:32 Respiratory Rate 24 H 01/06/21 22:32 Blood Pressure 115/82 01/06/21 22:32 Pulse Oximetry 100 01/06/21 22:32 MDM - Nausea/Vomiting/Diarrhea MDM Narrative Medical decision making narrativ
[2021-01-06 19:58] LABS: Alanine Aminotransferase 24 U/L (4-35)
[2021-01-06] MEDS: SODIUM CHLORIDE 0.9% IV 1,000 ML 999 ML IV CONT ×2 (20:18→21:46)
[2021-01-06] MEDS: ONDANSETRON INJ 4 MG/2 ML VIAL IV PUSH (20:19)
[2021-01-06] MEDS: KETOROLAC 30 MG/ML VIAL (*BKC) IV PUSH (20:22)
[2021-01-06] MEDS: FAMOTIDINE 20 MG/2 ML VIAL IV PUSH (20:24)
== END 2021-01-06 22:58 | disposition home or self-care (01) ==
PROVIDERS: Emergency Provider Emergency Medicine; PCP Nurse Practitioner Family
DX: R19.7 Diarrhea, unspecified (principal); R11.0 Nausea; J45.909 Unspecified asthma, uncomplicated; I10 Essential (primary) hypertension; Z87.442 Personal history of urinary calculi; Z87.891 Personal history of nicotine dependence
CPT/HCPCS: 36415; 80053; 81001; 81025; 83690; 85025; 96361; 96374; 96375; 99284; J1885; J2405; J7030

== ENCOUNTER 2021-02-17 22:24 | Emergency (ER) | payer OTHER, SELFPAY ==
--- NOTE | ~2021-02-17 | XR_ITS ---
EXAMINATION: XR knee LT 3V DATE: 02/17/2021 22:58 INDICATION: Left knee pain TECHNIQUE: Three views of the left knee were obtained. COMPARISON: 04/26/2009 FINDINGS: Alignment is normal. No fracture or osteochondral lesion. Joint spaces are normal with no e rosions. No joint effusion/synovitis. Soft tissues are unremarkable. IMPRESSION: 1. No acute osseous abnormality. Reviewed, dictated and finalized at location B.
--- NOTE | ~2021-02-17 | XR_ITS ---
EXAMINATION: XR lumbar spine 2-3V DATE: 02/17/2021 22:58 INDICATION: Generalized back pain TECHNIQUE: Anteroposterior and lateral views of the lumbar spine, and cone-down lateral view of the l umbosacral junction were obtained. COMPARISON: 08/05/2020 FINDINGS: There is no fracture, dislocation, or subluxation. The vertebral body heights, alignment, a nd intervertebral disc spaces are normal. The paravertebral soft tissues are unremarkable. Cholecyste ctomy clips are noted in the right upper quadrant. IMPRESSION: 1. No acute osseous abnormality. Reviewed, dictated and finalized at location B.
[2021-02-17 22:27] VITALS: BP 162/113; PULSE 109; RESP 16; TEMP 36.7; O2SAT 100
[2021-02-17 22:31] VITALS: BP 151/104; PULSE 103; RESP 18; O2SAT 100
--- NOTE | 2021-02-17 22:42 | ED.GENADULT ---
HPI - General Adult General Chief complaint: Unspecified Stated complaint: lower back and left knee pain Time Seen by Provider: 02/17/21 22:32 History of Present Illness HPI narrative: Patient 40-year-old female presents to emergency department with chief complaint of left knee and low back pain. The patient reports that she has had chronic pain in her low back and also has had chronic pain in her left knee. Patient reports that it is intermittent reports has had no trauma reports that she is had no fever chills the patient reports that approximately 2 days ago her pain started getting worse. The patient states is been taking [id number] ibuprofen and [id number] Tylenol for the discomfort. Patient reports she has seen her primary care physician in the past and has had an MRI in the last year. The patient denies bowel or bladder dysfunction denies paresthesias or focal neurological deficit Related Data Home Medications Medication Instructions Recorded Confirmed levonorgestrel-ethinyl estrad 06/24/20 lisinopril 06/24/20 albuterol sulfate INHALATION 08/05/20 escitalopram oxalate mg 01/06/21 01/06/21 Allergies Allergy/AdvReac Type Severity Reaction Status Date / Time No Known Allergies Allergy Verified 02/17/21 22:36 Review of Systems Review of Systems: Narrative: A 10 system review of systems was completed on the patient and is negative except for what is stated in the HPI. Nursing and ancillary documentation was reviewed. PMFSH Past Medical History Medical History Asthma Gallstones HTN (hypertension) Kidney stones Migraines Toe fracture, right Surgical History Surgical History History of ureter stent Hx of cholecystectomy Family History Family History Other No significant family history Social History Social History Smoking status: Former smoker Tobacco type: cigarettes Alcohol intake: never Substance use: never Gender identity (if verbalized by the patient): Female Exam Narrative: Exam Narrative: GENERAL: Well-appearing, well-nourished, and in no acute distress. HEAD: Normocephalic, atraumatic. EYES: PERRLA and EOMI. ENT: Nares clear, no rhinorrhea or epistaxis. Mucous membranes moist. NECK: Supple. CHEST: Clear to auscultation. No respiratory distress. HEART: Regular rate and rhythm. No murmur heard. Normal peripheral pulses. ABDOMEN: Soft, nontender, nondistended, normal active bowel sounds. EXTREMITIES: Normal range of motion. No edema. There is mild tenderness to palpation in the left knee area there is no effusion noted Back: There is tenderness to palpation of the midline of the lumbar spine area SKIN: Warm, dry, no rash. NEURO: No focal deficits. Alert and oriented x3. PSYCH: Normal mood and affect. Course Vital Signs Vital signs: Vital Signs Temperature 36.7 C 02/17/21 22:27 Pulse Rate 109 H 02/17/21 22:27 Respiratory Rate 16 02/17/21 22:27 Blood Pressure 162/113 H 02/17/21 22:27 Pulse Oximetry 100 02/17/21 22:27 Temperature 36.7 C 02/17/21 22:27 Pulse Rate 103 H 02/17/21 22:31 Respiratory Rate 18 02/17/21 22:31 Blood Pressure 151/104 H 02/17/21 22:31 Pulse Oximetry 100 02/17/21 22:31 Medical Decision Making Vital Signs Vital Signs: Vital Signs Temperature 36.7 C 02/17/21 22:27 Pulse Rate 109 H 02/17/21 22:27 Respiratory Rate 16 02/17/21 22:27 Blood Pressure 162/113 H 02/17/21 22:27 Pulse Oximetry 100 02/17/21 22:27 Temperature 36.7 C 02/17/21 22:27 Pulse Rate 103 H 02/17/21 22:31 Respiratory Rate 18 02/17/21 22:31 Blood Pressure 151/104 H 02/17/21 22:31 Pulse Oximetry 100 02/17/21 22:31 Discharge Plan Discharge Clinical
[2021-02-17] MEDS: CYCLOBENZAPRINE HCL 10 MG TABLET PO (23:00)
[2021-02-17] MEDS: KETOROLAC (*BKC) 60 MG/2 ML VIAL (23:02)
[2021-02-17 23:15] VITALS: BP 148/93; PULSE 98; RESP 18; TEMP 36.8; O2SAT 99
== END 2021-02-17 23:17 | disposition home or self-care (01) ==
LOC: ANHED 22:54
PROVIDERS: Emergency Provider Emergency Medicine; PCP Nurse Practitioner Family
DX: M25.562 Pain in left knee (principal); M54.5 Low back pain; G89.29 Other chronic pain; J45.909 Unspecified asthma, uncomplicated; I10 Essential (primary) hypertension; Z87.442 Personal history of urinary calculi; Z87.891 Personal history of nicotine dependence
CPT/HCPCS: 72100; 73562; 96372; 99284; A9270; J1885

== ENCOUNTER 2021-06-18 09:37 | Emergency (ER) | payer OTHER, SELFPAY ==
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
[2021-06-18 09:55] VITALS: BP 121/86; PULSE 93; RESP 16; TEMP 37.1; O2SAT 99
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
== END 2021-06-18 11:35 | disposition home or self-care (01) ==
PROVIDERS: Emergency Provider Nurse Practitioner; PCP Nurse Practitioner Family
DX: S50.01XA Contusion of right elbow, initial encounter (principal); V49.50XA Passenger injured in collision with unspecified motor vehicles in traffic accident, initial encounter; J45.909 Unspecified asthma, uncomplicated; I10 Essential (primary) hypertension; Z87.891 Personal history of nicotine dependence
CPT/HCPCS: 73080; 99213; G0463

== ENCOUNTER 2021-07-13 13:27 | Emergency (ER) | payer OTHER, SELFPAY ==
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
[2021-07-13] MEDS: KETOROLAC 30 MG/ML VIAL (*BKC) IV PUSH (14:36)
[2021-07-13] MEDS: diphenhydrAMINE HCl INJ 50 MG/ML VIAL 25 MG IV PUSH (14:37)
[2021-07-13] MEDS: METOCLOPRAMIDE HCL INJ 10 MG/2 ML VIAL IV PUSH (14:38)
[2021-07-13] MEDS: SODIUM CHLORIDE 0.9% IV 1,000 ML 999 ML IV CONT (14:42)
[2021-07-13 16:11] VITALS: BP 117/77; PULSE 100; RESP 18; TEMP 36.7; O2SAT 100
== END 2021-07-13 16:24 | disposition home or self-care (01) ==
PROVIDERS: Emergency Provider Emergency Medicine; PCP Nurse Practitioner Family
DX: G43.009 Migraine without aura, not intractable, without status migrainosus (principal); J45.909 Unspecified asthma, uncomplicated; I10 Essential (primary) hypertension
CPT/HCPCS: 96365; 96366; 96375; 99284; J0131; J1200; J1885; J2765; J7030

== ENCOUNTER 2022-03-11 17:21 | Emergency (ER) | payer OTHER, SELFPAY ==
--- NOTE | ~2022-03-11 | CT_ITS ---
EXAMINATION: CT abdomen pelvis wo con DATE: 03/11/2022 19:06 INDICATION: right flank pain. h/o kidney stones TECHNIQUE: Computed tomography (CT) of the abdomen and pelvis was performed without intravenous contr ast. Automated exposure control and iterative reconstruction technique were employed. The dose-length product was 608.29 mGy-cm. COMPARISON: None. FINDINGS: Lower thorax: Unremarkable Liver: Normal. Biliary/Gallbladder: Gallbladder is normal. No bile duct dilation. Pancreas: No mass or duct dilation. Spleen: Normal. Adrenals:No mass. Kidneys: No mass, stone, or hydronephrosis. GI tract: No small or large bowel dilation. Normal appendix. Mesentery/Peritoneum: No ascites, mass, or free air. Retroperitoneum: No mass. Pelvis: Pelvic organs are within normal limits. Soft Tissues: Soft tissues and body wall unremarkable. Bones: No acute osseous finding. IMPRESSION: No acute abdominal pelvic process detected. Reviewed, dictated and finalized at location K.
[2022-03-11 17:55] VITALS: BP 152/98; PULSE 89; RESP 20; TEMP 36.2; O2SAT 100
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
[2022-03-11] MEDS: KETOROLAC 30 MG/ML VIAL (*BKC) IM (18:22)
[2022-03-11 18:29] LABS: Basophils Absolute Auto 0.03 K/mm3 (0.00-0.10); Basophils Percent Auto 0.2 % (0.0-1.0); Eosinophils Absolute Auto 0.15 K/mm3 (0.02-0.50); Eosinophils Percent Auto 1.2 % (1.0-6.0); Hematocrit 39.4 % (35.0-49.0); Hemoglobin 12.3 g/dL (12.0-15.0); Immature Granulocyte Absolute 0.07 K/mm3 (0.00-0.00); Immature Granulocyte Percent A 0.6 % (0.0-0.0); Lymphocytes Absolute Auto 3.07 K/mm3 (1.10-4.50); Lymphocytes Percent Auto 25.2 % (18.0-42.0); Mean Corpuscular HGB Conc 31.2 g/dL (32.0-36.0); Mean Corpuscular Hemoglobin 26.9 pg (27.0-31.0); Mean Corpuscular Volume 86.2 fL (78.0-102.0); Mean Platelet Volume 10.1 fl (9.2-11.8); Monocytes Absolute Auto 0.65 K/mm3 (0.10-0.90); Monocytes Percent Auto 5.3 % (2.0-11.0); Neutrophils Absolute Auto 8.2 K/mm3 (1.7-7.2); Neutrophils Percent Auto 67.5 % (50.0-70.0); Platelet Count Result 401 K/mm3 (150-420); Red Blood Count 4.57 M/mm3 (4.20-5.40); Red Cell Distribution Width 13.3 % (11.6-14.4); White Blood Count 12.2 K/mm3 (4.8-10.8)
[2022-03-11 18:32] LABS: Add Urine Microscopic? YES; Appearance Urine Cloudy (Clear); Bilirubin Urine Negative (Negative); Blood Urine 2+ (Negative); Color Urine Yellow (Yellow); Glucose Urine UA Negative (Negative); Ketones Urine Negative (Negative); Leukocyte Esterase Ur 2+ LEU/UL (Negative); Nitrate Urine Positive (Negative); Protein Urine Trace (Negative); Specific Grav Ur >= 1.030 (1.010-1.020); Urobilinogen Urine 0.2 mg/dL (0.2-1.0)
[2022-03-11 18:45] LABS: Bacteria Urine 2+ /hpf; Squamous Epithelial Cell Urine Rare /hpf (Few); WBC Urine >75 /hpf (0-3)
[2022-03-11 18:48] LABS: Lactic Acid Reflex 0.3 mmol/L (0.4-2.0)
[2022-03-11 18:54] LABS: Pregnancy On Board Control Positive; Urine Pregnancy Test Negative
[2022-03-11 18:57] LABS: Alanine Aminotransferase 16 U/L (14-59); Albumin Level 3.5 g/dL (3.4-5.0); Alkaline Phosphatase 133 U/L (46-116); Anion Gap 8 mmol/L (8-16); Aspartate Amino Transferase < 10 U/L (15-37); Bilirubin,Total 0.5 mg/dL (0.00-1.00); Blood Urea Nitrogen 10 mg/dL (7-18); Calcium 8.7 mg/dL (8.5-10.1); Carbon Dioxide 29 mmol/L (21-32); Chloride 103 mmol/L (98-108); Estimated CRCL calculation 88 ml/min; Estimated Glomerular Filt Rate > 60; Glucose 108 mg/dL (70-99); Osmolality Calculated 290 mOsm/kg (285-295); Potassium 3.4 mmol/L (3.5-5.1); Sodium 140 mmol/L (136-145); Total Protein 7.1 g/dL (6.4-8.2)
[2022-03-11] MEDS: SULFAMETHOXAZOLE/TRIMETHOPRIM 800/160 MG DS TABLET 1 TAB PO (19:45)
[2022-03-11 19:46] VITALS: BP 153/100; PULSE 91; RESP 18; TEMP 36.6; O2SAT 99
--- NOTE | 2022-03-14 12:26 | PC.NURSE ---
urine culture report received. positive for Ecoli. bactrim DS prescribed at discharge. Ecoli is sensitive to Bactrim DS. no further treatment required.
== END 2022-03-11 19:51 | disposition home or self-care (01) ==
PROVIDERS: Emergency Provider Emergency Medicine
DX: N30.01 Acute cystitis with hematuria (principal)
CPT/HCPCS: 36415; 74176; 80053; 81001; 81025; 83605; 85025; 86140; 87077; 87086; 87088; 87186; 96372; 99284; A9270; J1885

== ENCOUNTER 2022-04-20 11:39 | Emergency (ER) | payer OTHER, SELFPAY ==
--- NOTE | ~2022-04-20 | XR_ITS ---
EXAMINATION: XR chest 1V portable DATE: 04/20/2022 12:29 INDICATION: Cough and congestion. TECHNIQUE: A single frontal view of the chest was obtained. COMPARISON: Chest single view 07/07/2020 FINDINGS: There is mild scarring at the lung apices. No pleural effusion or pneumothorax. The heart s ize is normal. IMPRESSION: 1. Stable mild scarring at the lung apices. Reviewed, dictated and finalized at location [facility].
[2022-04-20 11:51] VITALS: BP 147/97; PULSE 91; RESP 18; TEMP 36.9; O2SAT 100
--- NOTE | 2022-04-20 12:13 | ED.GENADULT ---
HPI - General Adult General Chief complaint: Upper Respiratory Infection Stated complaint: cough, sore throat, nasal congestion Time Seen by Provider: 04/20/22 11:44 Source: patient Mode of arrival: ambulatory Limitations: no limitations History of Present Illness HPI narrative: Patient is a 41-year-old female who presents to the ED with report of upper respiratory symptoms x2 days. Patient reports having intermittent cough, congestion, runny nose, mild sore throat, intermittent [place]. She has tried some [id number] cough medicine at home. She denies any fever, muscle aches, chest pain, difficulty breathing, nausea, vomiting, abdominal pain. Patient is vaccinated for COVID. She states one of her coworkers recently went home sick but she is unsure if she tested positive for COVID. Related Data Home Medications Medication Instructions Recorded Confirmed lisinopril 20 mg tablet 20 mg PO DAILY 06/24/20 03/11/22 albuterol sulfate 90 mcg/actuation 90 mcg inhalation QID PRN 08/05/20 03/11/22 aerosol inhaler difficulty breathing escitalopram oxalate 10 mg tablet 10 mg PO DAILY 01/06/21 03/11/22 levonorgestrel 0.15 mg-ethinyl 1 tablet PO DAILY 06/18/21 03/11/22 estradiol 30 mcg tablets,3 mos pack(91) (Gisele) metformin 1,000 mg tablet 1,000 mg PO DAILY 06/18/21 03/11/22 Allergies Allergy/AdvReac Type Severity Reaction Status Date / Time No Known Allergies Allergy Verified 04/20/22 11:53 Review of Systems Review of Systems: CONSTITUTIONAL: Denies fever, chills, or sweats. ENT: Reports rhinorrhea, congestion, sore throat. CARDIOVASCULAR: Denies chest pain. RESPIRATORY: Reports cough. Denies dyspnea. GASTROINTESTINAL: Denies abdominal pain, nausea, vomiting. MUSCULOSKELETAL: Denies myalgia. NEUROLOGIC: Reports headache. All systems reviewed & are unremarkable except as noted in HPI and below PMFSH Past Medical History Medical History Asthma Depression Gallstones HTN (hypertension) Kidney stones Migraines Toe fracture, right Type 2 diabetes mellitus Surgical History Surgical History History of ureter stent Hx of cholecystectomy Family History Family History Other No significant family history Social History Social History Smoking status: Former smoker Tobacco type: cigarettes Alcohol intake: never Substance use: never Gender identity (if verbalized by the patient): Female Exam Narrative: GENERAL: Well appearing, well-nourished, non-toxic, in no acute distress. HEAD: Normocephalic, atraumatic. EYES: PERRL/EOMI, conjunctivae clear bilaterally. NOSE: Normal, no drainage. THROAT: Pharynx clear, minimal posterior pharynx erythema. No exudate or tonsillar hypertrophy. MMs moist. NECK: Supple. No adenopathy, no masses. RESPIRATORY: Airway patent, respirations nonlabored. Clear to auscultation bilaterally, no rales, rhonchi, wheezing. CARDIOVASCULAR: Regular rate and rhythm without murmurs, rubs, or gallops. Radial pulses 2+ and equal bilaterally. ABDOMINAL: Soft, nontender, nondistended, no hepatosplenomegaly. Normoactive BS. MUSCULOSKELETAL: Moves all extremities. Strength/ROM intact without gross deformities. SKIN: Warm, dry, normal color. No rashes. NEURO: A&O X3. Speech clear. Cranial nerves II-XII grossly intact. Steady gait. No ataxic movements. PSYCHIATRIC: Appropriate mood and affect. Normal interaction. Course Vital Signs Vital signs: Vital Signs Temperature 98.4 F 04/20/22 11:51 Pulse Rate 91 04/20/22 11:51 Respiratory Rate 18 04/20/22 11:51 Blood Pressure 147/97 H 04/20/22 11:51 Pulse Oximetry 100 04/20/22 11:51 Oxygen Delivery Room Air 04/20/22 11:51 Temperature 98.4 F 04/20/22 11:51 Pulse Rate 91 04/20/22 11
[2022-04-20 12:34] LABS: SARS-CoV-2 RNA PCR Negative
== END 2022-04-20 13:20 | disposition home or self-care (01) ==
PROVIDERS: Physician Assistant; Emergency Provider General Practice
DX: J06.9 Acute upper respiratory infection, unspecified (principal); Z20.822 Contact with and (suspected) exposure to COVID-19; J45.909 Unspecified asthma, uncomplicated; I10 Essential (primary) hypertension; E11.9 Type 2 diabetes mellitus without complications; F32.A Depression, unspecified; Z79.84 Long term (current) use of oral hypoglycemic drugs; Z87.442 Personal history of urinary calculi; Z96.0 Presence of urogenital implants; Z87.891 Personal history of nicotine dependence
CPT/HCPCS: 71045; 99283; C9803; U0003; U0005

== ENCOUNTER 2022-06-28 10:57 | Emergency (ER) | payer OTHER, SELFPAY ==
--- NOTE | ~2022-06-28 | CT_ITS ---
EXAMINATION: CT facial bones wo con DATE: 06/28/2022 12:31 INDICATION: Right orbital swelling. No trauma. TECHNIQUE: Computed tomography (CT) of the facial bones and maxillofacial region was performed withou t intravenous contrast. Automated exposure control and iterative reconstruction technique were employ ed. Exam dose: 287.02 mGy-cm total exam DLP. COMPARISON: None. FINDINGS: Zygomatic sutures, orbital poles regions, zygomatic arches, maxillary bones and mandible ar e all in intact, without evidence of fracture. Normal alignment at the temporomandibular joints. The paranasal sinuses and mastoid air cells are normally developed and aerated minimal mucoperiosteal thickening in the lower right maxillary sinus. No orbital mass lesion is noted. Orbital contents are symmetric. No intraconal or extraconal mass les ion. IMPRESSION: No significant abnormality Reviewed, dictated and finalized at [facility]. Reviewed, dictated and finalized at location [facility]. ER AIDE IMPRESSION: No significant abnormality
[2022-06-28 11:26] VITALS: BP 155/97; PULSE 98; RESP 16; TEMP 36.8; O2SAT 98
[2022-06-28 12:15] LABS: Basophils Absolute Auto 0.03 K/mm3 (0.00-0.10); Basophils Percent Auto 0.3 % (0.0-1.0); Eosinophils Absolute Auto 0.24 K/mm3 (0.02-0.50); Eosinophils Percent Auto 2.6 % (1.0-6.0); Hematocrit 36.3 % (35.0-49.0); Hemoglobin 11.5 g/dL (12.0-15.0); Immature Granulocyte Absolute 0.04 K/mm3 (0.00-0.00); Immature Granulocyte Percent A 0.4 % (0.0-0.0); Lymphocytes Absolute Auto 2.13 K/mm3 (1.10-4.50); Lymphocytes Percent Auto 23.5 % (18.0-42.0); Mean Corpuscular HGB Conc 31.7 g/dL (32.0-36.0); Mean Corpuscular Hemoglobin 26.3 pg (27.0-31.0); Mean Corpuscular Volume 82.9 fL (78.0-102.0); Mean Platelet Volume 9.9 fl (9.2-11.8); Monocytes Absolute Auto 0.48 K/mm3 (0.10-0.90); Monocytes Percent Auto 5.3 % (2.0-11.0); Neutrophils Absolute Auto 6.2 K/mm3 (1.7-7.2); Neutrophils Percent Auto 67.9 % (50.0-70.0); Platelet Count Result 335 K/mm3 (150-420); Red Blood Count 4.38 M/mm3 (4.20-5.40); Red Cell Distribution Width 13.8 % (11.6-14.4); White Blood Count 9.1 K/mm3 (4.8-10.8)
[2022-06-28 12:18] LABS: Pregnancy On Board Control Positive; Urine Pregnancy Test Negative
[2022-06-28] MEDS: ERYTHROMYCIN OPHTH OINTMENT 3.5 GM TUBE 1 APPLIC RIGHT EYE (12:37)
[2022-06-28] MEDS: ACETAMINOPHEN 325 MG TABLET 650 MG PO (12:37)
[2022-06-28] MEDS: cefTRIAXone 1 GM, LIDOCAINE HCL 1% LOCAL INJ 2.1 ML IM (12:37)
--- NOTE | 2022-06-28 14:01 | ED.GENADULT ---
HPI - General Adult General Chief complaint: Unspecified Stated complaint: R eye swelling and pain Time Seen by Provider: 06/28/22 10:59 Source: patient and RN notes reviewed Limitations: no limitations History of Present Illness MD complaint: right eyelid and lower orbit mild swelling. no acute trauma, redness or co Onset (ago): day(s) (1) Location: eyes Radiation: non-radiation Severity: mild Severity scale (1-10): 2 Pain Consistency: other (pain-free) Relieving factors: none Exacerbating factors: none Associated symptoms: denies other symptoms Related Data Home Medications Medication Instructions Recorded Confirmed lisinopril 20 mg tablet 20 mg PO DAILY 06/24/20 06/28/22 Allergies Allergy/AdvReac Type Severity Reaction Status Date / Time No Known Allergies Allergy Verified 06/28/22 11:30 Review of Systems Review of Systems: All systems reviewed & are unremarkable except as noted in HPI and below Constitutional: Constitutional: Reports no additional constitutional complaints Eyes: Eyes: Reports other (lid swelling right) ENT: Reports system reviewed and no additional complaints, except as documented Cardiovascular: Cardiovascular: Reports no additional cardiovascular complaints Respiratory: Respiratory: Reports no additional respiratory complaints Gastrointestinal: Gastrointestinal: Reports no additional gastrointestinal complaints Genitourinary: Genitourinary: Reports no additional female genitourinary complaints Musculoskeletal: Musculoskeletal: Reports no additional musculoskeletal complaints Integumentary/Breasts: Skin/Breast: Reports system reviewed and no additional complaints, except as docu Neurologic: Reports system reviewed and no additional complaints, except as documented Psychiatric: Psychiatric: Reports no additional psychiatric complaints Endocrine: Endocrine: Reports no additional endocrine complaints Hematologic/Lymphatic: Hematologic/Lymphatic: Reports no additional hematologic/lymphatic complaints Allergic/Immunologic: Allergic/Immunologic: Reports no additional allergic/immunologic complaints [facility] Past Medical History Medical History Asthma Depression Eyelid disease Gallstones HTN (hypertension) Kidney stones Migraines Orbital swelling Toe fracture, right Type 2 diabetes mellitus Surgical History Surgical History History of ureter stent Hx of cholecystectomy Family History Family History Other No significant family history Social History Social History Smoking status: Former smoker Tobacco type: cigarettes Alcohol intake: never Substance use: never Gender identity (if verbalized by the patient): Female Exam Narrative: normal vision and bilateral conjunctivae. Const: General: no acute distress and well nourished Nutritional Appearance: well nourished Orientation/consciousness: patient oriented x3 Limitations: no limitations HENMT: Head: normal to inspection and other (minimal right lower lid swelling with lower orbital puffiness.) Ears: external ears normal, TM's normal bilaterally and EAC's normal Face/Nose/Sinus: Normal external nose present, Normal nares present, normal facial exam and sinuses nontender Face and sinus: normal facial exam and sinuses nontender Mouth: Yes Normal oral and palatal mucosa present and Yes moist mucous membranes Teeth and gingiva: dentition normal Throat: posterior oropharynx normal Eyes: Conjunctivae: conjunctivae normal Pupils: Equal, round and reactive pupils present EOM: EOMs intact bilaterally Neck: Neck: normal visual inspection, no lymphadenopathy and no meningeal signs Chest: Chest palpation & inspection: normal inspection of the chest Resp: Effort & Inspection: normal
[2022-06-28 14:19] VITALS: BP 151/99; PULSE 106; RESP 16; TEMP 36.4; O2SAT 100
== END 2022-06-28 14:26 | disposition home or self-care (01) ==
PROVIDERS: Emergency Provider Emergency Medicine
DX: M79.89 Other specified soft tissue disorders (principal); H01.002 Unspecified blepharitis right lower eyelid
CPT/HCPCS: 36415; 70486; 81025; 85025; 96372; 99284; A9270; J0696

== ENCOUNTER 2022-10-18 20:55 | Emergency (ER) | payer OTHER, SELFPAY ==
[2022-10-18 21:01] VITALS: BP 128/67; PULSE 84; RESP 18; TEMP 36.7; O2SAT 98
--- NOTE | 2022-10-18 21:05 | ED.WOUNDLAC ---
HPI - Wound/Laceration General Stated Complaint: Wound/Laceration Source: patient Mode of arrival: ambulatory Limitations: no limitations History of Present Illness HPI narrative: this is a 42-year-old female that has an avulsion injury to the plantar surface of her left foot around the 2nd toe currently not bleeding no warmth or tenderness has good range of motion in her foot apparently cut it on a stick that was protruding and the ground when she was outdoors. No fever chills no redness no warmth of her foot has good range of motion. Onset (ago): hour(s) Location: other Extremity Location: Left: foot ( plantar surface of also an injury on the 2nd toe) Place: outdoors Patient tetanus UTD: No Context: accidental Related Data Home Medications Medication Instructions Recorded Confirmed lisinopril 20 mg tablet 20 mg PO DAILY 06/24/20 06/28/22 Allergies Allergy/AdvReac Type Severity Reaction Status Date / Time No Known Allergies Allergy Verified 06/28/22 11:30 Review of Systems Review of Systems: All systems reviewed & are unremarkable except as noted in HPI and below PMFSH Past Medical History Medical History Asthma Depression Eyelid disease Gallstones HTN (hypertension) Kidney stones Migraines Orbital swelling Toe fracture, right Type 2 diabetes mellitus Surgical History Surgical History History of ureter stent Hx of cholecystectomy Family History Family History Other No significant family history Social History Social History Smoking status: Former smoker Tobacco type: cigarettes Alcohol intake: never Substance use: never Gender identity (if verbalized by the patient): Female Exam Const: General: healthy appearing Nutritional Appearance: well nourished Orientation/consciousness: patient oriented x3 Limitations: no limitations HENMT: Head: normal to inspection Eyes: Conjunctivae: conjunctivae normal Pupils: Equal, round and reactive pupils present Chest: Chest palpation & inspection: normal inspection of the chest Resp: Effort & Inspection: normal respiratory effort Auscultation: clear to auscultation bilaterally Cardio: Rate: regular rate Rhythm: regular rhythm Skin: Other: Of motion injury left plantar surface of her foot 2nd toe Neuro: General: patient oriented x3 and moves all extremities Extrem: General: normal to inspection Psych: Mental Status: mental status grossly normal Affect: normal affect Course Course Emergency Course: patient was updated with her tetanus vaccine and Dermabond was placed on the wound site. Vital Signs Vital signs: Vital Signs Temperature 36.7 C 10/18/22 21:01 Temperature 36.7 C 10/18/22 21:01 Procedures Laceration Laceration 1: Date: 10/18/22 Time: 21:09 Site: lower extremity Side (If applicable): left Size (cm): 1 Description: irregular Pre-repair: wound explored and irrigated ====== Skin Level ====== Skin layer closed with: dermabond ====== Subcutaneous Layer ====== ====== Muscle Layer ====== ====== Tendon Layer ====== Critical Care Time Critical Care Time Critical Care Time: No Discharge Plan Discharge Clinical Impression: Avulsion injury Patient Disposition: Home, Self-Care Condition: Stable Instructions: Antibiotic Form, Skin Avulsion (ED) Additional Instructions: follow-up with primary care physician if symptoms persist or worsen. Prescriptions: No Action amoxicillin 875 mg tablet 875 mg PO Q12H Qty: 20 0RF erythromycin 5 mg/gram (0.5 %) ointment 1 applic RIGHT EYE Q4H Qty: 3.5 0RF lisinopril 20 mg tablet 20 mg PO DAILY Follow-up/Referrals:
[2022-10-18 21:09] VITALS: BP 120/88; PULSE 70; RESP 20; O2SAT 100
--- NOTE | 2022-10-18 21:09 | PC.NURSE ---
area cleansed, dermabond applied and gauze dressing to protect area
[2022-10-18 21:16] VITALS: BP 132/80; PULSE 88; RESP 18; TEMP 37.2; O2SAT 100
[2022-10-18] MEDS: TETANUS,DIPHTHERIA,AC PERTUSSIS ADULT 0.5 ML (ADACEL) IM (21:18)
== END 2022-10-18 21:22 | disposition home or self-care (01) ==
PROVIDERS: Emergency Provider Emergency Medicine
DX: S91.115A Laceration without foreign body of left lesser toe(s) without damage to nail, initial encounter (principal); I10 Essential (primary) hypertension; E11.9 Type 2 diabetes mellitus without complications; J45.909 Unspecified asthma, uncomplicated; Z87.891 Personal history of nicotine dependence; Z23 Encounter for immunization; W26.8XXA Contact with other sharp object(s), not elsewhere classified, initial encounter
CPT/HCPCS: 12001; 90471; 90715; 99283